=== PATIENT | male | born 2000 | race Caucasian/White ===

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

== ENCOUNTER 2019-01-24 11:34 | Emergency (ER) | payer MEDICAID ==
[~2019-01-24] VITALS: Ht 182.9 cm; Wt 88.5 kg
[~2019-01-24 11:34] MED LIST changes: +IBUP600 PO
== END 2019-01-24 13:18 | disposition home or self-care (01) ==
LOC: ER 11:34
DX: J02.9 Acute pharyngitis, unspecified (principal); Z88.1 Allergy status to other antibiotic agents; F17.210 Nicotine dependence, cigarettes, uncomplicated
CPT/HCPCS: 87081; 87430; 99282; J1100

== ENCOUNTER 2019-01-30 15:04 | Emergency (ER) | payer SELFPAY ==
[~2019-01-30] VITALS: Ht 182.9 cm; Wt 88.5 kg
[2019-01-30] MEDS ORDERED: HYDCOR2.5C PR (16:00)
[2019-01-30] MEDS ORDERED: RECTASMOOTHE30 GM TOP (16:02)
[2019-03-01] MEDS ORDERED: Vibramycin100 MG PO (21:50)
[2019-03-01] MEDS ORDERED: Norco 5-325 Ta1 EACH PO (21:50)
== END 2019-01-30 16:10 | disposition home or self-care (01) ==
LOC: ER 15:04
DX: K64.4 Residual hemorrhoidal skin tags (principal); Z79.899 Other long term (current) drug therapy; F17.220 Nicotine dependence, chewing tobacco, uncomplicated
CPT/HCPCS: 99282